=== PATIENT | female | born 1950 | race Caucasian/White ===

== ENCOUNTER 2022-06-26 12:00 | Emergency (ER) | payer MEDICARE ==
[~2022-06-26] VITALS: Ht 165.1 cm; Wt 72.6 kg
[2022-06-26 12:00] VITALS: BP 138/60
[2022-06-26] MEDS ORDERED: TYLENOL #3 PO STA (12:17)
[2022-06-26] MEDS ORDERED: TYLENOL #3 PO ONE (12:21)
[2022-06-26] MEDS ORDERED: TORADOL IV STA (12:44)
[2022-06-26] MEDS ORDERED: TORADOL ONE (12:45)
--- NOTE | 2022-06-26 13:07 | DIREP ---
PROCEDURE:XRAY RIBS 3VWS-LT COMPARISON:None. INDICATIONS:rib pain FINDINGS: RIBS:No fracture. OTHER:Minimal atelectasis at the left lung base. Normal heart size for technique. Calcification and tortuosity of the thoracic aorta. CONCLUSION:No evidence of left rib fracture. Dictated by: Arpit Peralta M.D. on 06/26/2022 at 01:04 PM
--- NOTE | 2022-06-26 13:54 | ER.PDOC ---
General Chief Complaint: Requesting Medical Care Stated Complaint: RIB PAIN Time seen by MD: 13:20 Source: patient Exam Limitations: no limitations History of Present Illness Initial Comments 72-year-old female had a fall at home, fell onto her left side, complaining of left rib pain. Pain with movement. No shortness of breath. No other injuries Allergies: Coded Allergies: Sulfa (Sulfonamide Antibiotics) (Verified Allergy, Unknown, 06/26/22) codeine (Verified Allergy, Unknown, 06/26/22) morphine (Verified Allergy, Unknown, 06/26/22) propoxyphene (Verified Allergy, Unknown, 06/26/22) Past Medical History Medical History: cancer Surgical History: hysterectomy Social History Alcohol Use: none Drug Use: none Review of Systems All Other Systems: Reviewed and Negative Physical Exam General Appearance: No Apparent Distress Head: No Evidence of Injury Ears, Nose, Mouth, Throat: No Evidence of ENT Injury Cardiovascular/Respiratory: Regular Rate, Rhythm Gastrointestinal: Soft Back: Normal Inspection Extremities: No Evidence of Injury, No Pedal Edema Neurologic/Psychiatric: Alert, Oriented x 3 [place] Coma Score Best Eye Response: (4) Open Spontaneously Best Verbal Response: (5) Oriented Best Motor Response: (6) Obeys Commands Karen Total: 15 Results/Orders Results/Orders Orders - ALEK JOY MD Xr Ribs Lt (06/26/22 12:17) Acetaminophen With Codeine (Tylenol #3) (06/26/22 12:17) Acetaminophen With Codeine (Tylenol #3) (06/26/22 12:21) Ketorolac Tromethamine (Toradol) (06/26/22 12:44) Ketorolac Tromethamine (Toradol) (06/26/22 12:45) Vital Signs Date Time Temp Pulse Resp B/P (MAP) Pulse Ox O2 Delivery O2 Flow Rate FiO2 06/26/22 12:00 98.1 73 18 138/60 (86) 98 Room Air* 0 21 06/26/22 12:00 98.1 73 18 06/26/22 12:00 98.1 73 18 98 Administered Medications Medications (Trade) Dose Ordered Sig/Yue Route PRN Reason Start Time Stop Time Status Last Admin Dose Admin Ketorolac Tromethamine (Toradol) 15 mg OT STAT IV 06/26/22 12:44 06/26/22 12:45 DC 06/26/22 12:49 15 MG ER DEPART Departure Time of Disposition: 13:54 Disposition: 01 HOME / SELF CARE / HOMELESS Impression: Primary Impression: Rib pain on left side Condition: Improved Referrals: PCP,UNKNOWN (PCP) PRIMARY CARE PROVIDER Duration or Time Spent with Pa: Ogm ALEK JOY MD Jun 26, 2022 13:54
== END 2022-06-26 14:22 | disposition home or self-care (01) ==
LOC: ER 12:00 → EDBD 12:00 → ER 14:22
DX: R07.81 Pleurodynia (principal); Z85.9 Personal history of malignant neoplasm, unspecified; Z90.710 Acquired absence of both cervix and uterus; Z88.2 Allergy status to sulfonamides; Z88.5 Allergy status to narcotic agent; W19.XXXA Unspecified fall, initial encounter
CPT/HCPCS: 99283; 96374; 71100; J1885; J3490